=== PATIENT | female | born 1970 | race Caucasian/White ===

== ENCOUNTER 2017-09-10 19:04 | Emergency (ER) | payer BC ==
--- NOTE | 2017-09-10 21:21 | CT ---
NONCONTRAST CT HEAD 09/10/17 HISTORY: Right vision loss. Papilledema. COMPARISON: None available. FINDINGS: There is no evidence of a hemorrhage, acute infarction, mass effect or midline shift. The ventricular system is normal in size, shape and position. The visualized paranasal sinuses and mastoid air cells are clear. Calvarial structures are intact. IMPRESSION: No acute intracranial abnormality is demonstrated. POS: [facility]
== END 2017-09-10 20:55 | disposition home or self-care (01) ==
LOC: ERS 19:04
DX: H47.10 Unspecified papilledema (principal); H54.62 Unqualified visual loss, left eye, normal vision right eye; F41.9 Anxiety disorder, unspecified; F32.9 Major depressive disorder, single episode, unspecified; F17.210 Nicotine dependence, cigarettes, uncomplicated
CPT/HCPCS: 70450

== ENCOUNTER 2025-05-11 11:54 | Emergency (ER) | payer BC ==
[2025-05-11 13:36] LABS: #Basophils 0.04 10x3/uL (0.0-0.2); #Eosinophils 0.09 10x3/uL (0.0-0.7); #Monocytes 0.49 10x3/uL (0.11-0.59); #Neutrophils 5.41 10x3/uL (1.40-6.50); %Basophils 0.5 % (0.0-1.0); %Eosinophils 1.1 % (0.0-10.0); %Lymphocytes 24.8 % (21.0-51.0); %Monocytes 6.1 % (0.0-10.0); %Neutrophils 67.3 % (42.0-75.0); Hematocrit 42.5 % (36.0-47.0); Hemoglobin 14.8 g/dL (12.0-16.0); Mean Corpuscular Hemoglobin 30.7 pg (27.0-31.0); Mean Corpuscular Volume 88.2 fL (78.0-98.0); Platelet Count 192 10x3/uL (130-400); Red Blood Cell (RBC) Count 4.82 mill/uL (4.20-5.40); White Blood Cell (WBC) Count 8.04 10x3/uL (4.8-10.8)
[2025-05-11 13:55] LABS: ALT (SGPT) 44 U/L (Less than 34); AST (SGOT) 29 U/L (11-34); Albumin 3.9 g/dL (3.1-4.5); Alkaline Phosphatase 103 U/L (40-110); Anion Gap 12 mmol/L (10-20); BUN (Urea Nitrogen) 12 mg/dL (9.8-20.1); Bilirubin, Total 0.3 mg/dL (0.3-1.2); Calc. Creatinine Clearance 0 mL/min (70-130); Calcium 9.1 mg/dL (7.8-10.44); Carbon Dioxide 24 mmol/L (22-29); Chloride 112 mmol/L (98-107); Globulin 2.8 g/dL (2.4-3.5); Glucose 98 mg/dL (70-105); Potassium 3.8 mmol/L (3.5-5.1); Sodium 144 mmol/L (136-145)
[2025-05-11 14:08] LABS: CAUTI Indications for Culture Dysuria,urgency,freq; Glucose, Urine (Dipstick) Normal (Negative); Leukocyte 25 Leu/uL (Negative); Protein, Urine (Dipstick) Negative (Neg-Trace); RBC/HPF 0-3 HPF (0-3); Specific Gravity, Urine 1.026 (1.002-1.036)
[2025-05-11 14:10] LABS: Bacteria/HPF 1+ HPF (None Seen)
[2025-05-11 14:11] LABS: Urine Culture Reflex No No
== END 2025-05-11 15:31 | disposition home or self-care (01) ==
LOC: ERS 11:54
DX: I10 Essential (primary) hypertension (principal); R82.71 Bacteriuria; F17.210 Nicotine dependence, cigarettes, uncomplicated
CPT/HCPCS: 71045; 80053; 81001; 84484; 85025; 93005